=== PATIENT | male | born 1995 | race African-American/Black ===

== ENCOUNTER 2020-05-01 17:24 | Emergency (ER) | payer OTHER ==
[~2020-05-01] VITALS: Ht 167.6 cm; Wt 61.4 kg
[2020-05-01 17:33] VITALS: Ht 167.6 cm; Wt 61.4 kg
[2020-05-01 18:14] LABS: BILIRUBIN NEGATIVE (NEGATIVE); GLUCOSE NEGATIVE (NEGATIVE); KETONE SMALL mg/dL (NEGATIVE); NITRITE NEGATIVE (NEGATIVE); RED CELLS - URINE 0-5 /hpf (0-5); UROBILINOGEN NORMAL (NORMAL); WHITE CELLS - URINE >50 /hpf (NEGATIVE)
[2020-05-01 18:16] LABS: BACTERIA FEW /hpf (NEGATIVE)
[2020-05-01 18:38] VITALS: BP 132/83
== END 2020-05-01 18:39 | disposition home or self-care (01) ==
LOC: D.ER 17:24
PROVIDERS: Family Medicine
DX: R30.0 Dysuria (principal); Z20.2 Contact with and (suspected) exposure to infections with a predominantly sexual mode of transmission